=== PATIENT | female | born 1960 | race Caucasian/White ===

== ENCOUNTER 2023-08-03 07:43 | Outpatient (CLI) | payer BC | END 2023-08-03 07:44 | disposition home or self-care (01) | LOC: CSHRAD 07:43 | PROVIDERS: ATTEND Internal Medicine Gastroenterology | DX: I25.10 Atherosclerotic heart disease of native coronary artery without angina pectoris (principal); R63.4 Abnormal weight loss; K21.9 Gastro-esophageal reflux disease without esophagitis; K59.09 Other constipation; R13.10 Dysphagia, unspecified; K44.9 Diaphragmatic hernia without obstruction or gangrene | CPT/HCPCS: 74220 ==